=== PATIENT | female | born 1935 | race Caucasian/White ===

== ENCOUNTER 2019-08-03 14:29 | Emergency (ER) | payer MEDICARE ==
--- NOTE | 2019-08-03 14:43 | ERPHSYRPT ---
- History of Present Illness Time Seen by Provider: 08/03/19 14:43 Source: patient, family Exam Limitations: no limitations Physician History: 83 y/o white female fell for unknown reason yesterday afternoon. pt approached [place]. she went to open it and fell onto coccyx and hit back of head. no loc. still with headache today. denies cp, denies soa and denies abd pain. never had before. Occurred: yesterday Reason for Fall: unknown Injuries/Pain Location: head, back (coccyx) Loss of Consciousness: no loss of consciousness Quality: aching Severity of Pain-Max: mild Severity of Pain-Current: mild Modifying Factors: Improves With: movement (worsens) Associated Symptoms (Fall): back pain, headache Allergies/Adverse Reactions: No Known Drug Allergies Allergy (Unverified 08/03/19 14:44) Home Medications: Furosemide 08/03/19 [History] Losartan Potassium 100 mg PO DAILY 08/03/19 [History] Metoprolol Tartrate 25 mg PO DAILY 08/03/19 [History] - Review of Systems Constitutional: No Symptoms Eyes: No Symptoms Ears, Nose, & Throat: No Symptoms Respiratory: No Symptoms Cardiac: No Symptoms Abdominal/Gastrointestinal: No Symptoms Genitourinary Symptoms: No Symptoms Musculoskeletal: Other (buttock/coccyx) Skin: No Symptoms Neurological: Headache Psychological: No Symptoms Endocrine: No Symptoms Hematologic/Lymphatic: No Symptoms Immunological/Allergic: No Symptoms All Other Systems: Reviewed and Negative - Past Medical History Pertinent Past Medical History: Yes Neurological History: No Pertinent History ENT History: No Pertinent History Cardiac History: No Pertinent History Respiratory History: No Pertinent History Endocrine Medical History: No Pertinent History Musculoskeletal History: No Pertinent History GI Medical History: No Pertinent History History: No Pertinent History Psycho-Social History: No Pertinent History Female Reproductive Disorders: No Pertinent History - Past Surgical History Neuro Surgical History: No Pertinent History Cardiac: No Pertinent History Respiratory: No Pertinent History Gastrointestinal: No Pertinent History Genitourinary: No Pertinent History Musculoskeletal: No Pertinent History Female Surgical History: No Pertinent History - Nursing Vital Signs Nursing Vital Signs: Initial Vital Signs Temperature 98.1 F 08/03/19 14:37 Pulse Rate 102 H 08/03/19 14:37 Respiratory Rate 16 08/03/19 14:37 Blood Pressure 181/87 08/03/19 14:37 O2 Sat by Pulse Oximetry 94 L 08/03/19 14:37 Pain Scale Pain Intensity 4 - Francois Coma Score Best Eye Response (Francois): (4) open spontaneously Best Verbal Response ([place]): (5) oriented Best Motor Response ([place]): (6) obeys commands Francois Total: 15 - Physical Exam General Appearance: no apparent distress, alert, anxiety Head Injury: no evidence of injury, No Mascorro's Sign, No raccoon eyes Eye Exam: PERRL/EOMI, eyes nml inspection ENT Exam: airway nml, nml ext.inspection, hearing grossly normal, No evidence of ENT injury Neck Exam: supple, trachea midline, full range of motion, normal alignment, normal inspection Respiratory/Chest Exam: normal breath sounds, respiratory distress, No chest tenderness, No ecchymosis, No crepitus, No accessory muscle use Cardiovascular Exam: normal heart sounds, regular rate/rhythm, normal peripheral pulses Gastrointestinal Exam: soft, normal bowel sounds, No tenderness Rectal Exam: not done Extremity Exam: normal inspection, normal range of motion, pelvis stable, tenderness (around coccyx region) Neurologic Exam: alert, oriented x 3, cooperative, 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 Skin Exam: normal color, warm, dry SpO2 Interpretation: normal O2 Delivery: Room Air - Course Nursing assessment & vital signs reviewed: Yes EKG Interpreted by Me: RATE (84), Sinus Rhythm, NORMAL AXIS, NORMAL INTERVALS, NORMAL QRS, Non-specific ST Changes, Other (no comparison ekg) Ordered Tests: Active Orders 24 hr Category Date Time Status EKG-ER Only STAT Care 08/03/19 15:03 Active IV Insertion STAT Care 08/03/19 14:54 Active Orthostatic Vital Signs STAT Care 08/03/19 15:03 Active HEAD WITHOUT CONTRAST [CT] Stat Exams 08/03/19 14:54 Completed SACRUM AND COCCYX Stat Exams 08/03/19 15:17 Completed BMP Stat Lab 08/03/19 15:10 Completed CBC W DIFF Stat Lab 08/03/19 15:10 Completed CULTURE,URINE Stat Lab 08/03/19 16:58 Received UA W/RFX UR CULTURE Stat Lab 08/03/19 16:58 Completed Medication Summary Discontinued Medications Generic Name Dose Route Start Last Admin Trade Name Freq PRN Reason Stop Dose Admin Sodium Chloride 1,000 mls @ 999 mls/hr 08/03/19 14:54 08/03/19 16:41 Sodium Chloride 0.9% 1000 Ml IV 08/03/19 15:54 Infused .Q1H1M STA Infusion Sodium Chloride Confirm 08/03/19 15:01 Sodium Chloride 0.9% 1000 Ml Administered 08/03/19 15:02 Dose 1,000 mls @ ud .ROUTE .STK-MED ONE Lab/Rad Data: Laboratory Result Diagrams 08/03/19 15:10 08/03/19 15:10 Laboratory Results 08/03/19 08/03/19 08/03/19 Range/Units 16:58 15:10 15:10 WBC 11.7 H (4.0-10.5) K/mm3 RBC 4.55 (4.1-5.4) M/mm3 Hgb 12.4 (12.0-16.0) gm/dl Hct 39.6 (35-47) % MCV 87.0 (78-100) fl MCH 27.3 (26-32) pg MCHC 31.3 L (32-36) g/dl RDW 14.5 H (11.5-14.0) % Plt Count 231 (150-450) K/mm3 MPV 10.0 H (6-9.5) fl Gran % 76.7 H (36.0-66.0) % Eos # (Auto) 0.23 (0-0.5) Absolute Lymphs (auto) 1.50 (1.0-4.6) Absolute Monos (auto) 0.97 (0.0-1.3) Lymphocytes % 12.8 L (24.0-44.0) % Monocytes % 8.3 (0.0-12.0) % Eosinophils % 2.0 (0.00-5.0) % Basophils % 0.2 (0.0-0.4) % Absolute Granulocytes 8.98 H (1.4-6.9) Basophils # 0.02 (0-0.4) Sodium 143 (137-145) mmol/L Potassium 3.7 (3.5-5.1) mmol/L Chloride 106 (98-107) mmol/L Carbon Dioxide 28 (22-30) mmol/L Anion Gap 12.9 (5-15) MEQ/L BUN 12 (7-17) mg/dL Creatinine 0.65 (0.52-1.04) mg/dL Estimated GFR > 60.0 ML/MIN Glucose 114 H (74-106) mg/dL Calcium 10.1 (8.4-10.2) mg/dL Urine Color YELLOW (YELLOW) Urine Appearance CLOUDY (CLEAR) Urine pH 6.0 (5-6) Ur Specific [place] 1.020 (1.005-1.025) Urine Protein NEGATIVE (Negative) Urine Ketones SMALL (NEGATIVE) Urine Blood NEGATIVE (0-5) [place]/ul Urine Nitrite NEGATIVE (NEGATIVE) Urine Bilirubin NEGATIVE (NEGATIVE) Urine Urobilinogen NEGATIVE (0-1) mg/dL Ur Leukocyte Esterase LARGE (NEGATIVE) Urine WBC (Auto) 51-100 (0-5) /HPF Urine RBC (Auto) 6-10 (0-2) /HPF U Epithel Cells (Auto) FEW (FEW) /HPF Urine Bacteria (Auto) MODERATE (NEGATIVE) /HPF Urine Mucus (Auto) SLIGHT (NEGATIVE) /HPF Urine Culture Reflexed YES (NO) Urine Glucose NEGATIVE (NEGATIVE) mg/dL - Progress Progress: unchanged Progress Note: 08/03/19 15:35 xray sacrum and coccyx-no acute fx or process; ct head-no acute intracranial process. Counseled pt/family regarding: lab results, diagnosis, need for follow-up, rad results - Departure Departure Disposition: Home Clinical Impression: Fall, UTI (urinary tract infection) Condition: Stable Critical Care Time: No Referrals: MOLLY MORALES MD [Primary Care Provider] - Additional Instructions: drink plenty of fluids. take medications as prescribed. follow up with primary doctor for further management Prescriptions: Ciprofloxacin [Cipro 500 MG] 500 mg PO BID #14 tablet
[2019-08-03] MEDS ORDERED: Sodium Chloride 0.9% 1000 ML 1,000 ML IV STA (14:54)
[2019-08-03] MEDS ORDERED: Sodium Chloride 0.9% 1000 ML 1,000 ML ONE (15:01)
[2019-08-03 15:16] LABS: Absolute Neutrophil Ct (ANC) 8.98 (1.4-6.9); BASOPHIL % 0.2 % (0.0-0.4); Basophil (Absolute #) 0.02 (0-0.4); Eosinophil (Absolute #) 0.23 (0-0.5); Hematocrit 39.6 % (35-47); Hemoglobin 12.4 gm/dl (12.0-16.0); Lymphocytes % 12.8 % (24.0-44.0); Mean Corpuscular Hemoglobin 27.3 pg (26-32); Mean Corpuscular Hgb Concent. 31.3 g/dl (32-36); Monocyte (Absolute #) 0.97 (0.0-1.3); Monocytes % 8.3 % (0.0-12.0); Neutrophil % 76.7 % (36.0-66.0); Platelet Count 231 K/mm3 (150-450); Red Blood Count 4.55 M/mm3 (4.1-5.4); Red Cell Distribution Width 14.5 % (11.5-14.0); White Blood Count 11.7 K/mm3 (4.0-10.5)
[2019-08-03 15:26] LABS: ANION GAP 12.9 MEQ/L (5-15); BLOOD UREA NITROGEN 12 mg/dL (7-17); CHLORIDE 106 mmol/L (98-107); Calcium 10.1 mg/dL (8.4-10.2); Carbon Dioxide 28 mmol/L (22-30); Creatinine 1 0.65 mg/dL (0.52-1.04); Glucose 114 mg/dL (74-106); Potassium 3.7 mmol/L (3.5-5.1); SODIUM 143 mmol/L (137-145)
--- NOTE | 2019-08-03 15:31 | XRAY ---
Indication: Head injury following fall. Multiple contiguous axial images obtained through the head without contrast. Comparison: None Age-appropriate global atrophy, minimal periventricular degenerative micro-ischemia bilaterally, and 1 cm focus remote infarct involving the right insula posteriorly. No acute intracranial hemorrhage, abnormal extra-axial fluid question, or mass effect. Fourth ventricle is midline without hydrocephalus. Yuan-white matter differentiation preserved. Bony calvarium intact. There is complete opacification of the visualized left maxillary sinus. Mastoid air cells are clear. Impression: 1. Normal aging brain including atrophy and degenerative micro-ischemia. Small remote infarct right insula. 2. No acute intracranial abnormalities. 3. Incidental left maxillary sinus disease. CT DI 43.40
--- NOTE | 2019-08-03 15:33 | XRAY ---
Indication: Pain following fall. Comparison: None 3 views of the sacrum/coccyx demonstrates osteopenia, mild lower lumbar degenerative spondylosis, and scattered vascular calcifications. No other bony, articular, or soft tissue abnormalities.
[2019-08-03 17:07] VITALS: PULSE 82
[2019-08-03 17:13] LABS: Appearance CLOUDY (CLEAR); Bacteria MODERATE /HPF (NEGATIVE); Bilirubin NEGATIVE (NEGATIVE); Blood NEGATIVE Ery/ul (0-5); Epithelial Cells FEW /HPF (FEW); Glucose NEGATIVE (NEGATIVE); Ketones SMALL (NEGATIVE); Leukocyte Esterase LARGE (NEGATIVE); Mucus SLIGHT /HPF (NEGATIVE); Nitrite NEGATIVE (NEGATIVE); Protein,Urine Dip NEGATIVE (Negative); Urobilinogen NEGATIVE mg/dL (0-1); WBC 51-100 /HPF (0-5)
[2019-08-03] MEDS ORDERED: ROCEPHIN 1 Gm-D5w 50 ml Bag** 1 G/50 ML IVPB IV STA (17:32)
[2019-08-03] MEDS ORDERED: ROCEPHIN 1 Gm-D5w 50 ml Bag** 1 G/50 ML IVPB IV ONE (17:35)
[2019-08-03 18:13] VITALS: BP 152/76; O2SAT 90
== END 2019-08-03 18:14 | disposition home or self-care (01) ==
LOC: ED 14:29
DX: N39.0 Urinary tract infection, site not specified (principal); R51 Headache; S00.83XA Contusion of other part of head, initial encounter; W01.0XXA Fall on same level from slipping, tripping and stumbling without subsequent striking against object, initial encounter
CPT/HCPCS: 36000; 36415; 70450; 72220; 80048; 81001; 85025; 87077; 87086; 87186; 93005; 96360; 96365; 99285; J0696